=== PATIENT | male | born 1995 | race Caucasian/White ===

== ENCOUNTER 2018-01-17 14:27 | Emergency (ER) | payer OTHER ==
[2018-01-17] MEDS ORDERED: Clindamycin/D5W 900 mg/50 ml Premix Bag ONE (15:59)
[2018-01-17] MEDS ORDERED: Dexamethasone 4 mg/ml Vial ONE (16:01)
--- NOTE | 2018-01-18 08:32 | HP ---
DATE OF CONSULTATION: 01/17/2018 REASON FOR CONSULTATION: The patient seen for evaluation of epiglottitis. BRIEF HISTORY: A 22-year-old gentleman who presented to the [facility] with a 1-2 week history of sore throat, fatigue. He was mono positive. He was noted to have severe tonsillitis. Tish hernandez performed a CAT scan of his neck which showed no evidence of peritonsillar abscess. However, the re is concern for periepiglottic or laryngeal edema. He did notice some hoarseness and difficulty sw allowing, which he attributed to his tonsils. He was transferred from the Emergency Room to our [facility] room for higher level of care. PAST MEDICAL HISTORY: None. PAST SURGICAL HISTORY: None. ALLERGIES: No known drug allergies. MEDICATIONS: Tylenol, ibuprofen. REVIEW OF SYSTEMS: GENERAL: Low grade fevers and chills, no night sweats. CARDIOVASCULAR: No chest pain, shortness of breath, orthopnea. PULMONARY: No cough, wheeze or history of asthma. HEMATOLOGIC: No history of bleeding disorders. PHYSICAL EXAMINATION: HEENT: Patient is resting comfortably in bed. Voice is clear. He has no evidence of trismus. No e vidence of stridor. He is breathing comfortably and is in good spirits. Oral cavity and oropharynx shows bilateral follicular tonsillitis. Tonsils are enlarged approximately 3+. There is no evidence of adjacent cellulitis or edema. The uvula is midline. The visualized portions of the posterior ph arynx are clear. Bimanual palpation of the floor of mouth and base of tongue are soft and healthy. NECK: Subtle lymphadenopathy bilateral level 2, nonfluctuant. PROCEDURE: Flexible laryngoscopy was performed at the bedside. Topical anesthesia and decongestant was applied to the nasal cavity and the flexible laryngoscope was then used to visualize the nasal ca vity. The nasal cavity and nasopharynx are clear. Bilateral true vocal cords were fully mobile. Pi riform sinuses, vallecula, and epiglottis are all within normal limits. I see no evidence of any anthony ma of the larynx or hypopharyngeal structures. ASSESSMENT: 1. Acute follicular tonsillitis. 2. Infectious mononucleosis/viral upper respiratory infection. PLAN: I recommend he be started on some oral antibiotics such as clindamycin to help prevent any sup erseding bacterial infection on his follicular tonsillitis. He will follow up with his primary care physician for further care.
== END 2018-01-17 17:05 | disposition home or self-care (01) ==
LOC: ERS 14:27
DX: B27.90 Infectious mononucleosis, unspecified without complication (principal)
CPT/HCPCS: 96365; J1100; J3490